=== PATIENT | male | born 1980 | race Caucasian/White ===

== ENCOUNTER 2016-05-19 23:46 | Emergency (ER) | payer OTHER ==
[~2016-05-19] VITALS: Ht 177.8 cm; Wt 68.0 kg
[~2016-05-19 23:46] MED LIST: BACT800T5 PO; CEPH500C3 PO
[2016-05-19 23:49] VITALS: BP 134/66; PULSE 99; RESP 16; TEMP 97.5; O2SAT 97
[2016-05-20] MEDS ORDERED: ONDANSETRON HCL 4 MG/2 ML VIAL IV ONE (00:45)
[2016-05-20] MEDS ORDERED: SODIUM CHLOR 0.9% 1000 ML INJ 1,000 ML IV ONE (00:45)
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
[2016-05-20 01:43] LABS: AUTOMATED NEUTROPHIL # 11.2 TH/MM3 (1.8-7.7); BASOPHIL # 0.1 TH/MM3 (0-0.2); BASOPHIL % 0.5 % (0.0-2.0); EOSINOPHIL % 0.1 % (0.0-4.0); HEMATOCRIT 38.7 % (39.0-51.0); HEMO FLAGS DIFF FINAL; LYMPH % 6.1 % (9.0-44.0); LYMPHOCYTE # 0.8 TH/MM3 (1.0-4.8); MEAN CELL VOLUME 91.4 FL (80.0-100.0); MEAN CORPUSCULAR HEMOGLOBIN 32.3 PG (27.0-34.0); MEAN CORPUSCULAR HGB CONC 35.4 % (32.0-36.0); MONO % 7.5 % (0.0-8.0); NEUT % 85.8 % (16.0-70.0); PLATELET COUNT 289 TH/MM3 (150-450); RED BLOOD COUNT 4.23 MIL/MM3 (4.50-5.90); RED CELL DISTRIBUTION WIDTH 13.1 % (11.6-17.2)
[2016-05-20 01:49] LABS: BLOOD, URINE NEG (NEG); COMMENT (UR) CULT NOT INDICATED; CULTURE IF INDICATED CULT NOT INDICATED; GLUCOSE,URINE TRACE mg/dL (NEG); HYALINE CAST, URINE 1 /lpf (RARE); KETONE, URINE NEG (NEG); MUCUS URINE FEW /lpf (OCC); NITRITE,URINE NEG (NEG); PH, URINE 6.5 (5.0-8.5); SQUAMOUS EPITHELIAL CELL URINE <1 /hpf (0-5); URINE COLOR YELLOW (YELLW/STRAW)
[2016-05-20 01:57] LABS: ALT (GPT) 24 U/L (12-78); ANION GAP 10 MEQ/L (5-15); AST (GOT) 20 U/L (15-37); BICARBONATE 27.4 MEQ/L (21.0-32.0); BLOOD UREA NITROGEN 14 MG/DL (7-18); CHLORIDE 97 MEQ/L (98-107); GLOMERULAR FILTRATION RATE 96 ML/MIN (>89); POTASSIUM 3.3 MEQ/L (3.5-5.1); SODIUM (NA) 134 MEQ/L (136-145)
[2016-05-20 01:59] LABS: ALKALINE PHOSPHATASE 80 U/L (45-117); TOTAL BILIRUBIN ADULT 0.7 MG/DL (0.2-1.0)
[2016-05-20] MEDS ORDERED: ZOFR4TAB3 SL (02:09)
[2016-05-20 02:38] VITALS: BP 107/54
== END 2016-05-20 02:53 | disposition home or self-care (01) ==
LOC: NEPC 23:46
DX: F17.210 Nicotine dependence, cigarettes, uncomplicated (principal); S06.0X0A Concussion without loss of consciousness, initial encounter; R10.9 Unspecified abdominal pain; V19.3XXA Pedal cyclist (driver) (passenger) injured in unspecified nontraffic accident, initial encounter; Y93.55 Activity, bike riding
CPT/HCPCS: 70450; 80053; 81001; 83690; 85025; 96361; 96374; 99285; J2405; J7030

== ENCOUNTER 2016-06-27 09:55 | Emergency (ER) | payer MEDICAID, OTHER ==
[~2016-06-27] VITALS: Ht 177.8 cm; Wt 67.0 kg
[~2016-06-27 09:55] MED LIST changes: -BACT800T5 PO; -CEPH500C3 PO; +ZOFR4TAB3 SL
[2016-06-27 10:07] VITALS: BP 107/60; PULSE 70; RESP 18; TEMP 97.9; O2SAT 99
--- NOTE | 2016-06-27 10:31 | PD ---
HPI Chief Complaint: General Weakness Time Seen by Provider: 10:27 Travel History International Travel<30 days: No Contact w/Intl Traveler<30days: No Traveled to known affect area: No History of Present Illness HPI This 35-year-old male is complaining of generalized weakness. He says he has been feeling very tired for a few weeks. He has been sleeping excessively. He' s also been having some right lower quadrant pain. He is not aware of any fever or chills. There is been no vomiting or diarrhea. His appetite has not been what it usually is. He is not aware of any weight loss. He did notice a fall around his anus that concerned him. He has a history of testicular cancer in 2006. He was treated with orchiectomy and radiation to the abdomen. This was done in [place]. He did not have any chemotherapy. PFSH Past Medical History Hx Anticoagulant Therapy: No Asthma: Yes (childhood) Depression: Yes Cancer: Yes (TESTICULAR) Cardiovascular Problems: No Chemotherapy: No Cerebrovascular Accident: No Diabetes: No Diminished Hearing: No Kidney Stones: Yes (lithotripsy) Respiratory: No Immunizations Current: No Radiation Therapy: Yes Past Surgical History Other Surgery: Yes (TESTICULAR CANCER REMOVAL) Social History Alcohol Use: Yes (SOC) Tobacco Use: Yes (1ppd) Substance Use: No Allergies-Medications (Allergen,Severity, Reaction): Coded Allergies: No Known Allergies (Unverified , 06/27/16) Reported Meds & Prescriptions Reported Meds & Active Scripts Active No Active Prescriptions or Reported Medications Review of Systems General / Constitutional: No: Fever, Chills Eyes: No: Diploplia, Blurred Vision HENT: No: Headaches, Vertigo Cardiovascular: No: Chest Pain or Discomfort, Palpitations Respiratory: No: Cough, Shortness of Breath Gastrointestinal: No: Vomiting, Diarrhea Genitourinary: No: Urgency, Frequency Musculoskeletal: No: Myalgias, Arthralgias Skin: No Rash, No Itching Neurologic: Positive: Weakness, No: Dizziness Endocrine: No: Heat Intolerance, Cold Intolerance Hematologic/Lymphatic: No: Easy Bruising Physical Exam Narrative GENERAL: Well-developed male SKIN: Warm and dry. HEAD: Atraumatic. Normocephalic. EYES: Pupils equal and round. No scleral icterus. No injection or drainage. ENT: No nasal bleeding or discharge. Mucous membranes pink and moist. NECK: Trachea midline. No JVD. CARDIOVASCULAR: Regular rate and rhythm. No murmur appreciated. RESPIRATORY: No accessory muscle use. Clear to auscultation. Breath sounds equal bilaterally. GASTROINTESTINAL: Abdomen soft, non-tender, nondistended. Hepatic and splenic margins not palpable. There is a solitary testicle MUSCULOSKELETAL: No obvious deformities. No clubbing. No cyanosis. No edema. NEUROLOGICAL: Awake and alert. No obvious cranial nerve deficits. Motor grossly within normal limits. Normal speech. PSYCHIATRIC: Appropriate mood and affect; insight and judgment normal. Data Data Last Documented VS Vital Signs Date Time Temp Pulse Resp B/P Pulse Ox O2 Delivery O2 Flow Rate FiO2 06/27/16 10:07 97.9 70 18 107/60 99 Orders Complete Blood Count With Diff (06/27/16 10:27) Comprehensive Metabolic Panel (06/27/16 10:27) Urinalysis - C+S If Indicated (06/27/16 10:27) Ct Abd/Pel W Iv Contrast(Rout) (06/27/16 10:27) Iohexol 350 Inj (Omnipaque 350 Inj) (06/27/16 11:37) Labs Laboratory Tests Test 06/27/16 10:40 White Blood Count 6.8 TH/MM3 Red Blood Count 4.67 MIL/MM3 Hemoglobin 14.4 GM/DL Hematocrit 42.6 % Mean Corpuscular Volume 91.3 FL Mean Corpuscular Hemoglobin 30.9 PG Mean Corpuscular Hemoglobin 33.9 % Concent Red Cell Distribution Width 12.6 % Platelet Count 297 TH/MM3 Mean Platelet Volume 7.7 FL Neutrophils (%) (Auto) 66.4 % Lymphocytes (%) (Auto) 20.5 % Monocytes (%) (Auto) 8.7 % Eosinophils (%) (Auto) 1.6 % Basophils (%) (Auto) 2.8 % Neutrophils # (Auto) 4.5 TH/MM3 Lymphocytes # (Auto) 1.4 TH/MM3 Monocytes # (Auto) 0.6 TH/MM3 Eosinophils # (Auto) 0.1 TH/MM3 Basophils # (Auto) 0.2 TH/MM3 CBC Comment DIFF FINAL Differential Comment Urine Collection Type CLEAN CATCH Urine Color YELLOW Urine Turbidity SLIGHT Urine pH 7.0 Urine Specific [place] 1.017 Urine Protein NEG mg/dL Urine Glucose (UA) 100 mg/dL Urine Ketones NEG mg/dL Urine Occult Blood NEG Urine Nitrite NEG Urine Bilirubin NEG Urine Leukocyte Esterase NEG Urine RBC 0-3 /hpf Urine Squamous Epithelial 0-5 /hpf Cells Urine Amorphous Sediment MOD Microscopic Urinalysis Comment CULT NOT INDICATED Urine Collection Time 10:40 Sodium Level 141 MEQ/L Potassium Level 4.7 MEQ/L Chloride Level 108 MEQ/L Carbon Dioxide Level 25.0 MEQ/L Anion Gap 8 MEQ/L Blood Urea Nitrogen 9 MG/DL Creatinine 0.76 MG/DL Estimat Glomerular Filtration 117 ML/MIN Rate Random Glucose 100 MG/DL Calcium Level 8.9 MG/DL Total Bilirubin 0.7 MG/DL Aspartate Amino Transf 31 U/L (AST/SGOT) Alanine Aminotransferase 34 U/L (ALT/SGPT) Alkaline Phosphatase 112 U/L Total Protein 7.7 GM/DL Albumin 3.6 GM/DL [facility] Medical Decision Making Medical Screen Exam Complete: Yes Emergency Medical Condition: Yes Medical Record Reviewed: Yes Differential Diagnosis Differential includes electrolyte imbalance, diabetes, intra-abdominal mass. Narrative Course CBC and urine are both negative. CT scan of the abdomen and pelvis does not show any masses or lymphadenopathy. Patient is stable for discharge etiology of his weakness is not been determined. He appears stable Diagnosis Primary Impression: Nonspecific abdominal pain Scripts No Active Prescriptions or Reported Meds Disposition: 01 DISCHARGE HOME Condition: Stable Kristian Glover MD Jun 27, 2016 10:31
[2016-06-27 10:54] LABS: BLOOD, URINE NEG (NEG); GLUCOSE,URINE 100 mg/dL (NEG); KETONE, URINE NEG (NEG); NITRITE,URINE NEG (NEG)
[2016-06-27 10:59] LABS: AUTOMATED NEUTROPHIL # 4.5 TH/MM3 (1.8-7.7); BASOPHIL # 0.2 TH/MM3 (0-0.2); BASOPHIL % 2.8 % (0.0-2.0); EOSINOPHIL # 0.1 TH/MM3 (0-0.4); EOSINOPHIL % 1.6 % (0.0-4.0); HEMATOCRIT 42.6 % (39.0-51.0); HEMO FLAGS DIFF FINAL; LYMPH % 20.5 % (9.0-44.0); LYMPHOCYTE # 1.4 TH/MM3 (1.0-4.8); MEAN CELL VOLUME 91.3 FL (80.0-100.0); MEAN CORPUSCULAR HEMOGLOBIN 30.9 PG (27.0-34.0); MEAN CORPUSCULAR HGB CONC 33.9 % (32.0-36.0); MONO % 8.7 % (0.0-8.0); NEUT % 66.4 % (16.0-70.0); PLATELET COUNT 297 TH/MM3 (150-450); RED BLOOD COUNT 4.67 MIL/MM3 (4.50-5.90); RED CELL DISTRIBUTION WIDTH 12.6 % (11.6-17.2); WHITE BLOOD COUNT 6.8 TH/MM3 (4.0-11.0)
[2016-06-27 11:01] LABS: METHOD OF COLLECTION CLEAN CATCH
[2016-06-27 11:02] LABS: COMMENT (UR) CULT NOT INDICATED; CULTURE IF INDICATED CULT NOT INDICATED; RBC, URINE 0-3 /hpf (0-3); SQUAMOUS EPITHELIAL CELL URINE 0-5 /hpf (0-5); URINE COLOR YELLOW (YELLW/STRAW)
[2016-06-27 11:06] LABS: CHLORIDE 108 MEQ/L (98-107); POTASSIUM 4.7 MEQ/L (3.5-5.1); SODIUM (NA) 141 MEQ/L (136-145)
[2016-06-27 11:12] LABS: ANION GAP 8 MEQ/L (5-15); BLOOD UREA NITROGEN 9 MG/DL (7-18)
[2016-06-27 11:15] LABS: ALT (GPT) 34 U/L (12-78); AST (GOT) 31 U/L (15-37); GLOMERULAR FILTRATION RATE 117 ML/MIN (>89)
[2016-06-27 11:17] LABS: TOTAL BILIRUBIN ADULT 0.7 MG/DL (0.2-1.0)
[2016-06-27 11:18] LABS: ALKALINE PHOSPHATASE 112 U/L (45-117)
[2016-06-27] MEDS ORDERED: IOHEXOL 350 MG/ML 10 ML VIAL (for RAD DIAG) IV ONE (11:37)
--- NOTE | 2016-06-27 12:24 | RADHPO ---
EXAM DATE/TIME: 06/27/2016 11:27 [facility] COMPARISON: CT BRAIN W/O CONTRAST, May 20, 2016, 0:53. INDICATIONS : Right lower quadrant pain. IV CONTRAST: 100 cc Omnipaque 350 (iohexol) IV ORAL CONTRAST: No oral contrast ingested. RADIATION DOSE: 5.61 CTDIvol (mGy) MEDICAL HISTORY : Renal calculi. Carcinoma, testicular. SURGICAL HISTORY : Pithotripsy. Orchiectomy, right. ENCOUNTER: Initial ACUITY: 4 - 6 days PAIN SCALE: 3/10 LOCATION: Right lower quadrant TECHNIQUE: Volumetric scanning of the abdomen and pelvis was performed. Using automated exposure control and ad justment of the mA and/or kV according to patient size, radiation dose was kept as low as reasonably achievable to obtain optimal diagnostic quality images. FINDINGS: LOWER LUNGS: The visualized lower lungs are clear. LIVER: Homogeneous density without lesion. There is no dilation of the biliary tree. No calcified gallston es. SPLEEN: Normal size without lesion. PANCREAS: Within normal limits. KIDNEYS: Normal in size and shape. There is no mass, stone or hydronephrosis. ADRENAL GLANDS: Within normal limits. VASCULAR: There is no aortic aneurysm. BOWEL/MESENTERY: The stomach, small bowel, and colon demonstrate no acute abnormality. There is no free intraperitone al air or fluid. The appendix is not definitively visualized; however, no inflammatory changes are pr esent within the right lower quadrant. ABDOMINAL WALL: Within normal limits. RETROPERITONEUM: There is no lymphadenopathy. BLADDER: No wall thickening or mass. REPRODUCTIVE: Within normal limits. INGUINAL: There is no lymphadenopathy or hernia. MUSCULOSKELETAL: Within normal limits for patient age. CONCLUSION: 1. Negative CT scan of the abdomen and pelvis. Travis Saunders MD on June 27, 2016 at 12:17 Board Certified Radiologist. This report was verified electronically.
== END 2016-06-27 13:00 | disposition home or self-care (01) ==
LOC: PHED 09:55
DX: R10.84 Generalized abdominal pain (principal); F17.210 Nicotine dependence, cigarettes, uncomplicated
CPT/HCPCS: 74177; 80053; 81001; 85025; 99285; Q9967

== ENCOUNTER 2017-03-23 12:21 | Emergency (ER) | payer MEDICAID ==
[~2017-03-23] VITALS: Ht 177.8 cm; Wt 66.2 kg
[2017-03-23 12:39] VITALS: BP 116/56; PULSE 73; RESP 14; TEMP 98.4; O2SAT 99
--- NOTE | 2017-03-23 12:56 | PD ---
HPI Chief Complaint: Musculoskeletal Complaint Time Seen by Provider: 12:43 Travel History International Travel<30 days: No Contact w/Intl Traveler<30days: No Traveled to known affect area: No History of Present Illness HPI Patient comes in complaining of left heel pain ongoing for 2-3 weeks. Patient denies any known trauma. Reports he woke up with the pain one day. Patient states he is been walking on his toes secondary to pain in his heel. Denies anything else for this. Denies any radiation of the pain. Denies any fever, numbness or tingling, or other concerns. 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) Allergies-Medications (Allergen,Severity, Reaction): Coded Allergies: No Known Allergies (Unverified Adverse Reaction, Unknown, 03/23/17) Reported Meds & Prescriptions Reported Meds & Active Scripts Active Naprosyn (Naproxen) 500 Mg Tab 500 Mg PO Q12HR PRN Review of Systems General / Constitutional: No: Fever Eyes: No: Visual changes HENT: No: Headaches Cardiovascular: No: Chest Pain or Discomfort Respiratory: No: Shortness of Breath Gastrointestinal: No: Abdominal Pain Genitourinary: No: Dysuria Musculoskeletal: Positive: Pain Skin: No Rash Neurologic: No: Weakness Psychiatric: No: Depression Endocrine: No: Polydipsia Hematologic/Lymphatic: No: Easy Bruising Physical Exam Narrative GENERAL: Well-developed, well nourished, in no acute distress, and non-ill appearing. SKIN: Focused skin assessment warm and dry. Healing abrasion noted over the medial aspect of left ankle. There is no crepitus or signs of infection. HEAD: Atraumatic. Normocephalic. EYES: Pupils equal and round. EOMI. No scleral icterus. No injection or drainage. ENT: No nasal bleeding or discharge. Mucous membranes pink and moist. NECK: Trachea midline. Supple. No nuclear rigidity. CARDIOVASCULAR: Dorsal pulses 2+, intact, equal bilaterally. Capillary refill less than 2 seconds. RESPIRATORY: No accessory muscle use. No respiratory distress. MUSCULOSKELETAL: No obvious deformities. No clubbing. No cyanosis. No edema. Full range of motion. Ankle: Neagative anterior draw and Ibrahim test. Negative Mike's sign. No laxity noted with passive inversion and eversion of BL ankles. Negative squeeze test. Pulses equal BL distal to injury. Capillary refill less than 2 seconds distal to injury and equal BL. Sensation equal BL 1st web space. FROM of toes distal to injury and equal BL. NV intact distal to injury and equal BL. Dorsal pulses equal BL. The patient reports tenderness to palpation over plantar surface of left calcaneus. There is no crepitus. There is no signs of infection. NEUROLOGICAL: Awake and alert. No obvious cranial nerve deficits. Motor grossly within normal limits. Normal speech. PSYCHIATRIC: Appropriate mood and affect; insight and judgment normal. Data Data Last Documented VS Vital Signs Date Time Temp Pulse Resp B/P (MAP) Pulse Ox O2 Delivery O2 Flow Rate FiO2 03/23/17 12:39 98.4 73 14 116/56 (76) 99 Orders Orders Ketorolac Inj (Toradol Inj) (03/23/17 13:00) Foot, Heel Only ([id number]) (03/23/17 ) Ed Discharge Order (03/23/17 13:38) [facility] Medical Decision Making Medical Screen Exam Complete: Yes Emergency Medical Condition: Yes Differential Diagnosis Fracture, plantar fasciitis, heel spur, mass Narrative Course Patient in no obvious distress upon re-evaluation. All pertinent Radiology result(s) discussed with patient. Patient was asked if they wanted to speak to my attending, which the patient did not wish to do at this time. Any questions/ concerns in reference to patient diagnosis/condition discussed and clarified prior to patient's discharge. Reinforced sheer importance of close follow up with patient's primary physician or primary care clinic and a manager inside. Instructed patient to return to ED immediately, if symptoms return/worsen. Patient showed understanding of above instructions. Further instructions and recommendations were detailed in discharge paperwork. Patient ambulated without difficulty out of ED at discharge. Diagnosis Primary Impression: Calcaneal spur of left foot Referrals: Simi,Arthur B DPM Patient Instructions: General Instructions, Heel Spur (ED) Additional Instructions: Follow-up with your primary care physician and/or manager inside in one to 3 days for reevaluation. Take all medication as prescribed. Return to the emergency department if symptoms get worse. Med/Other Pt SpecificInfo: Prescription(s) given Scripts Naproxen (Naprosyn) 500 Mg Tab 500 MG PO Q12HR Y for PAIN SCALE 1 TO 10, #14 TAB 0 Refills Prov: Alfreda Conteh 03/23/17 Disposition: 01 DISCHARGE HOME Condition: Stable Rk Fitzgerald Mar 23, 2017 12:56
[2017-03-23] MEDS ORDERED: KETOROLAC TROMETHAMINE 60 MG/2 ML (IM) VIAL IM ONE (13:00)
--- NOTE | 2017-03-23 13:27 | RADRPT ---
EXAM DATE/TIME: 03/23/2017 12:56 [facility] COMPARISON: No previous studies available for comparison. INDICATIONS : Left heel pain with no known injury. MEDICAL HISTORY : Renal calculi. Carcinoma, testicular. Asthma. SURGICAL HISTORY : Lithotripsy.Testicular CA removal. ENCOUNTER: Initial ACUITY: 2 weeks PAIN SCORE: 9/10 LOCATION: Left heel FINDINGS: Two view examination of the left heel demonstrates the trabecula to be intact with no evidence of fra cture. There is mild calcaneal spurring. There is a normal calcaneal angle. The soft tissues are of normal thickness. CONCLUSION: 1. Mild calcaneal spurring. 2. No acute fracture or dislocation. Sachin Flores MD on March 23, 2017 at 13:24 Board Certified Radiologist. This report was verified electronically.
[2017-03-23] MEDS ORDERED: NAPR500 PO (13:38)
== END 2017-03-23 13:52 | disposition home or self-care (01) ==
LOC: PHEFT 12:21
DX: M77.32 Calcaneal spur, left foot (principal); F17.200 Nicotine dependence, unspecified, uncomplicated
CPT/HCPCS: 73650; 96372; 99284; J1885